=== PATIENT | female | born 1930 | race Asian ===

== ENCOUNTER 2016-11-07 18:32 | Inpatient (IN) | payer OTHER, MEDICAID ==
--- NOTE | 2016-11-07 18:50 | EDPHY ---
H & P Stated Complaint: fell forward out of walker inj l hip/ (also noting r facial droop)daughter Time Seen by Provider: 11/07/16 18:50 - Personal History Current Tetanus/Diphtheria Vaccine: Unsure - Medical/Surgical History Hx Asthma: No Hx Chronic Respiratory Disease: No Hx Diabetes: Yes Hx Cardiac Disease: Yes Hx Renal Disease: No Hx Cirrhosis: No Hx Alcoholism: No Hx HIV/AIDS: No Hx Splenectomy or Spleen Trauma: No Other PMH: Diabetes. left eye surgery - 2 weeks ago. hip surgery - February 2015. cardiac issues/dvt - Social History Smoking Status: Former smoker Constitutional: Initial Vital Signs Temperature (C) 36.7 C 11/07/16 18:44 Heart Rate 81 11/07/16 18:44 Respiratory Rate 18 11/07/16 18:44 Blood Pressure 188/67 H 11/07/16 18:44 O2 Sat (%) 90 L 11/07/16 18:44 O2 Delivery Mode Room Air Allergies/Adverse Reactions: bee stings Allergy (Uncoded 11/07/16 18:38) Home Medications: Medication Instructions Recorded Actos 11/07/16 Apresoline 11/07/16 Benicar 11/07/16 CALCI-CHEW 11/07/16 Cipro 11/07/16 Diclofenac 0.1% 11/07/16 Lasix 11/07/16 Lexapro 11/07/16 Lisinopril 11/07/16 Lopressor 100 mg (*) 11/07/16 Plendil 2.5 MG (*) 11/07/16 Restasis Opht Drops(*) 11/07/16 Trusopt 2% (*) 11/07/16 Ultram 11/07/16 Voltaren 11/07/16 traMADol 11/07/16 Medical Decision Making ED Course/Re-evaluation: CHIEF COMPLAINT: Femur fracture HISTORY OF PRESENT ILLNESS: The patient is an 85 y/o female arriving with her family from urgent care with a fractured left femur confirmed on x-ray. She complains of pain in her left lateral thigh and left groin after a mechanical fall tonight. She has a previously repaired fracture to her right femur and developed subsequent DVTs after that surgery. She is not currently on anticoagulants. She denies other injuries from the fall, head strike, or loss of consciousness. No weakness or paresthesias. Last PO intake lunch at noon. REVIEW OF SYSTEMS: A 10 point review of systems was performed and is negative with the exception of the elements mentioned in the history of present illness. PHYSICAL EXAM: HR, BP, O2 Sat, RR. Temp noted General Appearance: Alert, well hydrated, appropriate, and non-toxic appearing. Head: Atraumatic without scalp tenderness or obvious injury Eyes: Pupils equal, round, reactive to light and accommodation, EOMI, no trauma , no injection. Ears: Clear bilaterally, no perforation, normal landmarks Nose: Atraumatic, no rhinorrhea, clear. Throat: There is no erythema or exudates, no lesions, normal tonsils, mucus membranes moist. Neck: Supple, 2+ carotid upstroke, nontender, no lymphadenopathy. Respiratory: No retractions, no distress, no wheezes, and no accessory muscle use. Lungs are clear to auscultation bilaterally. Cardiovascular: Regular rate and rhythm, no murmurs, rubs, or gallops. Bilateral carotid, radial, dorsalis pedis, and posterior tibial pulses intact. Good capillary refill all extremities. Gastrointestinal: Abdomen is soft, nontender, non-distended, no masses, no rebound, no guarding, no peritoneal signs. Musculoskeletal: Tenderness to left upper thigh, pain with ROM. Other extremities have normal active ROM of all extremities, atraumatic. Neurological: Alert, appropriate, and interactive. The patient has normal DTRs and non-focal cranial nerves, motor, sensory, and cerebellar exam. Baseline right facial droop. Skin: No rashes, good turgor, no nodules on palpation. Past medical history: Femur fracture, UTIs Past surgical history: Right femoral neck fracture repair. Family history: Noncontributory Social history: Family at bedside DIAGNOSTICS/PROCEDURES/CRITICAL CARE TIME: Study: Urgent Care Pelvis x-ray Indication: Femur fracture Results: Pelvis x-ray was obtained. The results of the study are impacted left femoral neck fracture. I viewed the images myself on the PACS system. The 12 lead EKG was interpreted by myself. EKG shows sinus rhythm rate 85 with first degree AV block. See hard copy and/or "tracemaster" electronic copy for interpretation. Study: Chest x-ray Indication: preop Results: Chest x-ray was obtained. The results of the study are 1. Peribronchial thickening suggesting airway disease. 2. There may be an element of underlying interstitial lung disease. The study was read by the radiologist, Dr. Greco. I viewed the images myself on the PACS system. Study: CT of the Pelvis Indication: Femur fracture Results: CT scan of the pelvis was obtained. The results of the study are . The study was read by the radiologist, . I viewed the images myself on the PACS system. DIFFERENTIAL DIAGNOSIS: The differential diagnosis for the patient's trauma included but was not limited to intracranial injury, long bone and pelvic bone fractures, spinal injury, intra-abdominal injury, and intra-thoracic injury. MEDICAL DECISION MAKING: This is an 85 y/o female presenting with superior left thigh and groin tenderness and arriving with a confirmed left femoral neck fracture visible on x -ray at urgent care. She is not anticoagulated and denies other trauma from the fall. Plan for CT imaging of her pelvis and full preoperative work up. Will consult orthopedic surgeon. 1914: Dr. Holden accepts admission. 1916: Spoke with Dr. Nicole's PA, orthopedics. They will review imaging and assess patient. - Data Points Laboratory Results: Laboratory Results 11/07/16 19:10 11/07/16 19:10 WBC 13.33 H 10^3/uL (3.80-9.50) RBC 3.94 L 10^6/uL (4.18-5.33) Hgb 12.7 g/dL (12.6-16.3) Hct 38.1 % (38.0-47.0) MCV 96.7 fL (81.5-99.8) MCH 32.2 pg (27.9-34.1) MCHC 33.3 g/dL (32.4-36.7) RDW 13.3 % (11.5-15.2) Plt Count 226 10^3/uL (150-400) MPV 9.3 fL (8.7-11.7) Neut % (Auto) 83.6 H % (39.3-74.2) Lymph % (Auto) 10.2 L % (15.0-45.0) [place] % (Auto) 5.0 % (4.5-13.0) Eos % (Auto) 0.5 L % (0.6-7.6) Baso % (Auto) 0.2 L % (0.3-1.7) Nucleat RBC Rel Count 0.0 % (0.0-0.2) Absolute Neuts (auto) 11.16 H 10^3/uL (1.70-6.50) Absolute Lymphs (auto) 1.36 10^3/uL (1.00-3.00) Absolute Monos (auto) 0.66 10^3/uL (0.30-0.80) Absolute Eos (auto) 0.07 10^3/uL (0.03-0.40) Absolute Basos (auto) 0.02 10^3/uL (0.02-0.10) Absolute Nucleated RBC 0.00 10^3/uL (0-0.01) Immature Gran % 0.5 % (0.0-1.1) Immature Gran # 0.06 10^3/uL (0.00-0.10) PT 13.4 SEC (12.0-15.0) INR 1.03 (0.83-1.16) APTT 31.4 SEC (23.0-38.0) Sodium Pending Potassium Pending Chloride Pending Carbon Dioxide Pending Anion Gap Pending BUN Pending Creatinine Pending Estimated GFR Pending Glucose Pending Calcium Pending Departure - Departure Disposition: [facility] Inpatient Acute Clinical Impression: Fracture of femoral neck, left, closed Condition: Fair Report Scribed for: Phoenix Pascual Report Scribed by: Nikki Moya Date of Report: 11/07/16 Time of Report: 19:09
[2016-11-07] MEDS ORDERED: NS 1,000 ML IV ONE (19:11)
[2016-11-07 19:20] LABS: % IMMATURE GRANULYOCYTES 0.5 % (0.0-1.1); ABSOLUTE IMMATURE GRANULOCYTES 0.06 10^3/uL (0.00-0.10); ADD DIFF? NO; ADD MORPH? NO; ADD SCAN? NO; ATYPICAL LYMPHOCYTE FLAG 0 (0-99); FRAGMENT RBC FLAG 0 (0-99); HEMATOCRIT 38.1 % (38.0-47.0); HEMOGLOBIN 12.7 g/dL (12.6-16.3); LEFT SHIFT FLG 10 (0-99); LIPEMIA HEMOLYSIS FLAG 80 (0-99); MEAN CELL HEMOGLOBIN 32.2 pg (27.9-34.1); MEAN CELL HEMOGLOBIN CONCENTR. 33.3 g/dL (32.4-36.7); MEAN CELL VOLUME 96.7 fL (81.5-99.8); MEAN PLATELET VOLUME 9.3 fL (8.7-11.7); PLATELET CLUMPS FLAG 0 (0-99); PLATELET COUNT 226 10^3/uL (150-400); RED BLOOD CELL COUNT 3.94 10^6/uL (4.18-5.33); RED CELL DISTRIBUTION WIDTH 13.3 % (11.5-15.2)
[2016-11-07 19:30] LABS: INR 1.03 (0.83-1.16); PROTIME(PATIENT) 13.4 SEC (12.0-15.0)
[2016-11-07 19:31] LABS: APTT 31.4 SEC (23.0-38.0)
--- NOTE | 2016-11-07 19:31 | DX ---
AP upright portable chest Reason for examination: Shortness of breath in an 85-year-old female; no previous studies are availab le for comparison. FINDINGS: The heart size is normal allowing for portable technique. No pleural effusions are seen. Peribronchial thickening is noted and mild interstitial prominence is identified. Pleural surfaces an d bony thorax are negative for acute abnormality. IMPRESSION: 1. Peribronchial thickening suggesting airway disease. 2. There may be an element of underlying interstitial lung disease.
--- NOTE | 2016-11-07 19:34 | CPEKG ---
Heart Rate: 85 RR Interval: 706 P-R Interval: 276 QRSD Interval: 72 QT Interval: 392 QTC Interval: 467 P [place]: 61 QRS [place]: 46 T Wave [place]: 8 EKG Severity - ABNORMAL ECG - EKG Impression: SINUS RHYTHM EKG Impression: FIRST DEGREE AV BLOCK Electronically Signed By: Phoenix Pascual 07-Nov-2016 22:51:43
[2016-11-07 19:38] LABS: ANION GAP 11 mEq/L (8-16); CALCIUM 9.3 mg/dL (8.5-10.4); CARBON DIOXIDE 26 mEq/l (22-31); CHLORIDE 100 mEq/L (97-110); CREATININE 1.7 mg/dL (0.6-1.0); GLOMERULAR FILTRATION RATE 28; GLUCOSE 199 mg/dL (70-100); POTASSIUM 4.3 mEq/L (3.5-5.2); SODIUM 137 mEq/L (134-144)
[2016-11-07] MEDS ORDERED: fentaNYL 100 MCG/2 ML INJ IVP ONE (20:17)
[2016-11-07 20:52] LABS: COLOR YELLOW; LEUKOCYTE ESTERASE,URINE 3+ (NEGATIVE); NITRITE,URINE NEGATIVE (NEGATIVE)
[2016-11-07 21:04] LABS: BACTERIA 1+ /hpf (NONE SEEN)
--- NOTE | 2016-11-07 21:49 | CT ---
Noncontrast CT Extremity; Left Hip Reason for examination: Pain following trauma. Evaluate fracture. Technique: A noncontrast spiral acquisition was performed through the left, with axial images obtain ed at 1.25-mm thickness. Sagittal and coronal reformations are performed. Additionally, for more op timal characterization of osseous structures, a three-dimensional reformation was performed on the w orkstation. The study is reviewed on the workstation at multiple window/level settings. Dose reduct ion techniques were utilized. Comparison: Comparison to the outside left hip radiographic study from earlier today. Findings: There is a minimally-displaced femoral neck fracture, with impaction. There is no signifi cant angulation. Degenerative changes are noted involving the articulation of the femoral head with the acetabulum. No other fracture is identified. A minimal joint effusion is suspected. Vascular c alcifications are noted. Multiple uterine calcifications are seen consistent with calcified fibroids . Impressions 1. There is a minimally-displaced, impacted, left femoral neck fracture. 2. See above report for additional findings. A preliminary report was called to Dr. Phoenix Pascual at 2140 hours in the Emergency Department.
[2016-11-07] MEDS ORDERED: ONDANSETRON 4 MG/2 ML VIAL IVP PRN (21:56)
[2016-11-07] MEDS ORDERED: ZOLPIDEM TARTRATE 5 MG TAB PO PRN (21:56)
[2016-11-07] MEDS ORDERED: NS 1,000 ML IV SCH (22:00)
[2016-11-07] MEDS ORDERED: POLYVINYL ALCOHOL EACHEYE PRN (22:00)
[2016-11-07] MEDS ORDERED: POVIDONE EACHEYE PRN (22:00)
--- NOTE | 2016-11-07 22:22 | PDGENHP ---
History and Physical History and Physical: HISTORY AND PHYSICAL ADMISSION NOTE CC: Left hip pain after fall HISTORY: this woman with osteoporosis was sitting in her seated walker today when she leaned over to trying to tie his shoe and fell out of the walker which did not have lock wheels. She landed on left side has been able stand with left hip pain since then. She was seen elsewhere were a chest x-ray apparently shows a left femoral neck fracture although I do not have the report and I am unable to see the images so I am going on the report to me from Dr. Pascual in the ER. The patient denies any lightheadedness stroke-like symptoms syncopal type symptoms chest pain palpitations nausea fever or other acute illness other than a mechanical fall and post fall pain. She does have a previous history of falls and broke her right hip 1-1/2 years ago. She was treated with surgical pinning of the hip at [facility] at that time and have what sounds like a fairly uneventful recovery. She does have ongoing gait instability and has been living with her daughter who is her poker room manager. The daughter is here at the bedside with me now on helps with this history. The patient does not feel like she has any other injuries and does not have pain in any other parts of her body. ROS: There is chronic exertional dyspnea which is stable and some mild chronic ankle swelling which is stable. Also the patient has had off color urine for several weeks and has finished 2 recent courses of antibiotic for which describes urinary tract infection diagnosed in [place]. However at this time the daughter feels that the patient's urine is still off color and she is still concerned that there is infection. The patient is not aware of any fever symptoms or urinary symptoms. Otherwise a 10 system comprehensive review systems is unrevealing PAST MEDICAL HISTORY: -Chronic congestive heart failure diagnosed elsewhere; the patient has never been hospitalized, has no history of arrhythmia, palpitations, chest pain, or coronary disease. She sees Dr. Niurka Greenwood in [place] -chronic respiratory failure -diabetes mellitus type 2 -hypertension -DVT in her right leg after her right hip fracture 1 and half years ago -Glaucoma -Chronic kidney disease FAMILY MEDICAL HISTORY: Heart disease SOCIAL HISTORY: lives with her daughter: Ongoing gait instability is the major concern there MEDICATIONS: the medicine list has been reconciled by our pharmacist and I have reviewed the list and ordered appropriate medicines PHYSICAL EXAMINATION: Vital Signs: Some hypertension, otherwise stable without fever Examination: General: alert, oriented, fairly poor memory but otherwise good mentation, relaxed Skin: warm, dry, good color, no rash HEENT: normal without evidence of injury Neck: no mass or jvd or evidence of injury Resps: relaxed Lungs: Diminished but clear breath sounds Heart: regular, no murmur Abdomen: soft, nondistended, nontender, +BS, no mass Upper Extremities: normal Lower Extremities: Mild bilateral ankle edema, warm; the pulses are diminished at both feet symmetrically. She has intact neuro function at the left foot; there is ended here in dried crusting over skin at the left lateral malleolus where she has a chronic diabetic sore. 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, no focal weakness IV site: looks normal LABORATORY DATA: Creatinine 1.7 BUN 45 I do not currently have previous renal function data 10 white blood cells in the urinalysis with 5 red blood cells White blood cell count mildly elevated hemoglobin stable RADIOLOGY STUDIES: CT scan of the left hip shows a fracture with minimal if any displacement; I am unable to find the hip x-rays which were done at an outside facility today Chest x-ray in the ER today, my personal review of the images: Diffuse mild fibrous interstitial markings suggesting chronic interstitial lung disease ASSESSMENT: DIAGNOSES: # ACUTE LEFT HIP FRACTURE AFTER MECHANICAL FALL, THIS WILL NEED SURGICAL REPAIR # HISTORY OF DVT AND HIGH DVT RISK HERE # PYURIA OF UNCERTAIN SIGNIFICANCE. PATIENT HAS RECEIVED 2 RECENT COURSES OF ANTIBIOTIC FULL REPORTEDLY URINE INFECTION BUT SHE DOES NOT REALLY NOTICE SYMPTOMS AND I DO NOT HAVE CULTURE INFORMATION # CREATININE OF 1.7 BUN 45 WITH HISTORY OF RENAL INSUFFICIENCY, BUT AT THE MOMENT I DO NOT HAVE COMPARISON BLOOD TEST RESULTS # HISTORY OF CHRONIC HEART DISEASE, NEVER SEVERE ENOUGH TO REQUIRE ANY HOSPITALIZATION. SHE HAS NO KNOWN CORONARY OR ARRHYTHMIA HISTORY ADD THE AND APPEARS TO BE AT HER BASELINE FUNCTIONALLYAND FAR SWELLING AND BREATHING # SUSPECT CHRONIC INTERSTITIAL LUNG DISEASE BASED ON HER CHEST X-RAY WHICH MAY ACCOUNT FOR A LOT OF HER EXERTIONAL DYSPNEA PLANS: -I reviewed her case in detail with Dr. 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 It may be that this is not infection and maybe some other form of cystitis but has were looking to do a surgery with hardware it seems prudent to give some coverage at least for the time of surgery until we can get more detailed information. The patient does not recall symptoms of UTI but she does not have a great memory. -delirium prevention measures -in terms of surgical risk to the patient does have a somewhat increased risk of cardiac and pulmonary complications of surgery, however she is at her baseline from both a pulmonary and cardiac standpoint and other than some mild edema at the ankle seems well compensated. At this point there is no indication for further evaluations or interventions and I would recommend that we proceed with surgery in the morning. I reviewed this with Dr. Nicole I have reviewed the patient's case in detail with Jacklyn Pascual and Corey
[2016-11-07] MEDS ORDERED: HEPARIN 5,000 UNIT/0.5 ML SYR SC ONE (22:30)
[2016-11-07] MEDS: ESCITALOPRAM OXALATE 10 MG TAB PO SCH (23:11)
[2016-11-07] MEDS: METOPROLOL TARTRATE 25 MG TAB PO SCH (23:11)
[2016-11-08] MEDS: ACETAMINOPHEN 325 MG TAB PO PRN (00:37)
[2016-11-08 04:59] LABS: % IMMATURE GRANULYOCYTES 0.4 % (0.0-1.1); ABSOLUTE IMMATURE GRANULOCYTES 0.04 10^3/uL (0.00-0.10); ADD DIFF? NO; ADD MORPH? NO; ADD SCAN? NO; ATYPICAL LYMPHOCYTE FLAG 10 (0-99); FRAGMENT RBC FLAG 0 (0-99); HEMATOCRIT 33.5 % (38.0-47.0); HEMOGLOBIN 10.8 g/dL (12.6-16.3); LEFT SHIFT FLG 10 (0-99); LIPEMIA HEMOLYSIS FLAG 80 (0-99); MEAN CELL HEMOGLOBIN 31.6 pg (27.9-34.1); MEAN CELL HEMOGLOBIN CONCENTR. 32.2 g/dL (32.4-36.7); MEAN PLATELET VOLUME 9.4 fL (8.7-11.7); PLATELET CLUMPS FLAG 0 (0-99); PLATELET COUNT 179 10^3/uL (150-400); RED BLOOD CELL COUNT 3.42 10^6/uL (4.18-5.33); RED CELL DISTRIBUTION WIDTH 13.4 % (11.5-15.2)
[2016-11-08 05:27] LABS: ANION GAP 10 mEq/L (8-16); CALCIUM 8.4 mg/dL (8.5-10.4); CARBON DIOXIDE 22 mEq/l (22-31); CHLORIDE 109 mEq/L (97-110); CREATININE 1.3 mg/dL (0.6-1.0); GLOMERULAR FILTRATION RATE 39; GLUCOSE 133 mg/dL (70-100); POTASSIUM 4.3 mEq/L (3.5-5.2); SODIUM 141 mEq/L (134-144)
[2016-11-08] MEDS: PIOGLITAZONE HCL 15 MG TAB PO SCH (07:00)
[2016-11-08] MEDS ORDERED: METOPROLOL TARTRATE 25 MG TAB PO SCH (07:00)
[2016-11-08] MEDS: hydrALAZINE 25 MG TAB PO SCH ×2 (08:19→14:19)
[2016-11-08] MEDS: FUROSEMIDE 20 MG TAB PO SCH (08:20)
[2016-11-08] MEDS: OLMESARTAN MEDOXOMIL 20 MG TAB PO SCH (08:20)
[2016-11-08] MEDS: METOPROLOL TARTRATE 25 MG TAB PO SCH ×2 (08:20→17:59)
[2016-11-08] MEDS: LISINOPRIL 40 MG TAB PO SCH (08:21)
[2016-11-08] MEDS: FELODIPINE 5 MG TAB.ER PO SCH (08:22)
[2016-11-08] MEDS ORDERED: ENOXAPARIN 30 MG/0.3 ML SYR SC SCH (09:00)
[2016-11-08] MEDS ORDERED: CYCLOSPORINE 0.05% 1 EACH BOX EACHEYE SCH (09:00)
[2016-11-08] MEDS ORDERED: DORZOLAMIDE 2% OPTH DROPS OP SCH (09:00)
[2016-11-08] MEDS ORDERED: BUPIVACAINE/EPI 0.25% 30 ML SDV ONE (10:16)
[2016-11-08] MEDS ORDERED: fentaNYL 100 MCG/2 ML INJ ONE (10:35)
[2016-11-08] MEDS ORDERED: PROPOFOL/EMULSION 500 MG/50 ML BOTTLE IV ONE (10:35)
[2016-11-08] MEDS ORDERED: LIDOCAINE 2% JELLY 5 ML TUBE ONE (10:36)
[2016-11-08] MEDS ORDERED: ceFAZolin 2 GM/DEXTROSE 100 ML IV ONE (10:37)
[2016-11-08] MEDS ORDERED: DEXAMETHASONE 4 MG/ML VIAL ONE (10:50)
[2016-11-08] MEDS ORDERED: ONDANSETRON 4 MG/2 ML VIAL ONE (10:51)
[2016-11-08] MEDS ORDERED: PHENYLEPHRINE HCL 100 MCG/ML SYR ONE (10:52)
[2016-11-08] MEDS ORDERED: ceFAZolin 1 GM VIAL ONE ×2 (10:57)
--- NOTE | 2016-11-08 11:42 | HOSPPROG ---
Hospitalist Progress Note Assessment/Plan: 85-y/o F PMH T2DM, chronic respiratory failure, T2DM, htn, DCHF, CKD, admitted after a mechanical fall yesterday. Fell out of seated walker and landed on L hip with resultant femoral neck fx. #. L femoral neck fx: s/p L ORIF POD 0 Reports hip pain currently Will add prn narcotics #. CKD: appears to be at b/l #. DCHF: appears euvolemic #. chronic hypoxic respiratory failure: typically not on O2 #. pyuria: started on CTX; will await cx results recently treated with 2 courses of abx for UTI #. T2DM: home Pioglitazone continued #. DVT ppx: started on Heparin Subjective: Reports hip pain. No breathing difficulties. Objective: Vital Signs Temp Pulse Resp BP Pulse Ox 98.2 F 75 14 153/55 H 96 11/08/16 07:49 11/08/16 08:20 11/08/16 07:49 11/08/16 08:22 11/08/16 07:49 Laboratory Results 11/08/16 04:50 11/08/16 04:50 11/07/16 11/08/16 11/09/16 05:59 05:59 05:59 Intake Total 1575 Output Total 200 150 Balance 1375 -150 PT 13.4 SEC (12.0-15.0) 11/07/16 19:10 INR 1.03 (0.83-1.16) 11/07/16 19:10 - Physical Exam Constitutional: no apparent distress, appears nourished Eyes: PERRL, anicteric sclera Ears, Nose, Mouth, Throat: moist mucous membranes, hearing normal Cardiovascular: regular rate and rhythym, no murmur, rub, or gallop Respiratory: no respiratory distress Gastrointestinal: soft, non-tender abdomen Skin: warm, normal color Psychiatric: interacting appropriately ICD10 Worksheet Patient Problems: Problems Problem Status Diagnosed Fracture of femoral neck, left, closed Acute
--- NOTE | 2016-11-08 12:02 | DX ---
Intraoperative fluoroscopy History: Left hip fixation. Comparison: CT hip November 07, 2016. Findings: 4 spot films show placement of 3 cannulated screws through a femoral neck fracture, with ne ar-anatomic positioning. Fluoro time: 47.6 seconds. Dose: 9.0 mGy. Impression: Intraoperative fluoroscopy as above.
[2016-11-08] MEDS ORDERED: BISACODYL 10 MG SUPP PR PRN (12:19)
[2016-11-08] MEDS ORDERED: BISACODYL 5 MG EC TAB PO PRN (12:19)
--- NOTE | 2016-11-08 12:21 | POSTOPPROG ---
Post Op Note Date of Operation: 11/08/16 Surgeon: Cory Nicole Puff Ironer: None Anesthesiologist: Vineet Anesthesia: GET(General Endotracheal) Pre-op Diagnosis: L fem neck fx Post-op Diagnosis: same Procedure: CRIF L hip Inf/Abcess present in the surg proc area at time of surgery?: No EBL: 50-100 Complications: None
--- NOTE | 2016-11-08 12:34 | GCON ---
[f rep st] CONSULTATION ORTHOPEDIC CONSULTATION DATE OF CONSULTATION: 11/08/2016 CHIEF COMPLAINT: Left hip fracture. HISTORY OF PRESENT ILLNESS: An 85-year-old female with osteoporosis, who fell via mechanical fall when she attempted to tie her shoe. Injury occurred yesterday, 11/07/2016. She was brought into the emergency department, evaluated by Dr. Pascual, and found to have the above listed hip fracture. As a result, I was consulted as the on-call orthopedic surgeon. At this point, she notes left hip pain. She has been unable to bear weight. Before this injury, she would walk with a cane and front-wheeled walker, living at home with her daughter. She did suffer a similar right femoral neck fracture treated with CRIF approximately 1-1/2 years ago at [facility]. She has had relatively good recovery from this injury. She denies any other complaints or concerns at this time. PAST MEDICAL HISTORY: CHF, chronic respiratory failure. DM 2. Hypertension. Right lower extremity DVT 1.5 years ago, the same time as her right hip surgery. Glaucoma. CKD. PAST SURGICAL HISTORY: Right hip closed reduction internal fixation at [facility] by Dr. Braxton approximately 1.5 years ago. Four eye surgeries in 2016 for glaucoma and lens problems. ALLERGIES: No known drug allergies. She does have a significant allergy to bee stings. MEDICATIONS: Please see intake form for additional information; however, currently active medications at home are povidone-based eye drops, Travoprost, herbal supplements, acetaminophen, metoprolol, lisinopril, Lasix, felodipine, citalopram, dorzolamide, cyclosporine, hydralazine, olmesartan, and pioglitazone. Some of these medications have been changed as an inpatient and/ or others added and/or subtracted. Please see current active medications as an inpatient for additional information. SOCIAL HISTORY: She is and lives with her daughter in [place]. She does have some difficulty with gait and/or ambulation using a front-wheeled walker and/or cane. No alcohol, tobacco or drug intake. FAMILY HISTORY: Father with heart disease. Mother with stroke. Otherwise, much of the family history is unknown as the family immigrated from [facility]. REVIEW OF SYSTEMS: A 10-point review was performed and only notable for chronic exertional dyspnea, as well as mild bilateral ankle swelling. She has had recent UTIs with 2 recent courses of antibiotics. However, the daughter feels that the UTI may still be present and/or affecting the patient. She has currently received ceftriaxone. PHYSICAL EXAMINATION: VITAL SIGNS: Most recent blood pressure 156/59, heart rate 73, respiratory rate 14, saturating 96% on 2 L. Temperature 36.8 and afebrile. GENERAL: NAD. Cooperative and pleasant. HEENT: NC/AT. EOMI. PERRLA. Ears and nares patent without discharge. Oropharynx clear. NECK: NTTP. FROM. Supple. Negative Lhermitte's and Spurling's. No LAD. MUSCULOSKELETAL: Left hip is compared to the right. The right hip has a well- healed lateral incision. Left hip without any ecchymosis or erythema or edema. There is TTP. Log roll positive. Distally, both lower extremities without any calf tenderness. Negative Homans'. No significant swelling. DNVI VLE both thighs soft, both compartments soft. Skin intact. SKIN: Please see dictation above. There is no ecchymosis or erythema, calor or edema. No other rashes or lesions noted. No tattoos. NEUROLOGIC: Nonfocal. No deficits noted. C5 to T1 and L1 through S1 intact. DTRs are grade 1+ bilateral upper extremities with symmetry. Deferred in the lower extremities. PSYCH: Alert and oriented x3. Appropriate mood and affect. SECONDARY SURVEY: Both upper extremities, shoulders, pelvis and right lower extremity are examined and there are no other obvious objective signs of significant trauma. RADIOGRAPHS: Plain films and CT are reviewed, consistent with left garden 1 impacted femoral neck fracture. IMPRESSION: Closed left garden 1 valgus impacted femoral neck fracture. PLAN: The patient's diagnoses and treatment options have been outlined for her and her daughter, who is her medical power of litigation attorney associate. After understanding the risks, benefits and alternatives to surgery, she has provided a signed a witnessed informed consent, which is placed in her chart. We will proceed with CRIF versus ORIF, possible hemiarthroplasty of the left hip. The patient has been n.p.o. overnight. She is appropriately prepped for surgery and cleared by the medicine service. We will manage her perioperatively with careful assessment of possible VTE given her significant history. She did receive 1 dose of subcutaneous heparin overnight last night and will resume chemical proximal postoperatively. She will have TEDs and SCDs on the right lower extremity for surgery, as well as postoperatively. All of the family's questions have been answered today. They are very happy of the care received. I appreciate the opportunity to assist in the care of this patient. Please call with any questions. /[id number]/MODL MTDD
[2016-11-08] MEDS: CYCLOSPORINE 0.05% 1 EACH BOX EACHEYE SCH ×2 (13:05→21:30)
[2016-11-08] MEDS: POVIDONE EACHEYE PRN ×2 (13:06→21:31)
[2016-11-08] MEDS: POLYVINYL ALCOHOL EACHEYE PRN ×2 (13:06→21:31)
[2016-11-08] MEDS: VIT D PO SCH (13:12)
[2016-11-08] MEDS: PROBIOTIC PO SCH (13:12)
[2016-11-08] MEDS: CALCIUM PO SCH (13:12)
[2016-11-08] MEDS ORDERED: oxyCODONE IR 5 MG TAB PO PRN (13:32)
--- NOTE | 2016-11-08 14:07 | DX ---
Left hip 2 views at 1224 hours History: Postoperative left hip fixation. Comparison: Intraoperative fluoroscopy same day, CT pelvis November 07, 2016, outside left hip plain f ilm November 07, 2016. Findings: 3 cannulated screws traverse a mid left femoral neck fracture with 4 mm medial displacement . Old right femoral neck fracture and cannulated screw fixation are again noted. Osteopenia is presen t. 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 Atherosclerosis is noted. Calcified fibroids are present. Impression: Cannulated screw fixation of a minimally displaced left femoral neck fracture.
[2016-11-08] MEDS: DOCUSATE SODIUM 100 MG CAP PO SCH ×2 (14:19→21:30)
--- NOTE | 2016-11-08 15:04 | GOP ---
[f rep st] OPERATIVE REPORT DATE OF OPERATION: 11/08/2016 SURGEON: Cory Nicole MD SALES REPRESENTATIVE PUBLICATIONS: None. ANESTHESIA: General. ANESTHESIOLOGIST: Jermaine Manley MD PREOPERATIVE DIAGNOSIS: Left femoral neck fracture, closed. POSTOPERATIVE DIAGNOSIS: Left femoral neck fracture, closed. PROCEDURE PERFORMED: Closed reduction, internal fixation of left femoral neck fracture. FINDINGS: Garden I valgus-impacted left femoral neck fracture with minimal displacement. Bone quality consistent with osteopenia. ESTIMATED BLOOD LOSS: 30 cc. INDICATIONS: This is an 85-year-old female who fell yesterday mechanically, injuring her left hip when she was attempting to tie her shoe. She was unable to bear weight, brought into the Emergency Department, and was found to have the above listed diagnosis. After being cleared by the Medical Service, the patient was evaluated and the family was counseled regarding care. The risks, benefits and alternatives were described regarding the procedure and the daughter, who has medical power of senior trial attorney, provided to sign a witnessed informed consent which was placed in the patient's chart. All of their questions were answered prior to surgery. DESCRIPTION OF PROCEDURE: The patient was identified in the preoperative holding area and her left hip was signed and designated as the operative site. Right lower extremity was confirmed and SCDs and VERNELL hose were ordered. She was treated with 2 g IV prophylaxis cefazolin per protocol. The patient did receive an additional dose of ceftriaxone for her urinary tract infection. The patient was intubated on her gurney. She was then carefully positioned on the fracture table with a well-padded perineal post. Right lower extremity was placed in a diana-lithotomy position. Left lower extremity was placed in the fracture table boot with standard internal rotation and adduction. Both arms were well-padded and protected. The left hip was then prepped and draped in the usual sterile manner. A large C-arm device was utilized for imaging during the surgery. The skin line incision was anesthetized with 10 cc of 0.25% Marcaine with epinephrine. A 4 cm skin incision was placed directly over the lateral aspect of the greater trochanter and intertrochanteric region of the hip. A full- thickness dermal incision was carried down through the fat with a Bovie cautery device. All small crossing bleeders were coagulated. The IT band was split in parallel with its fibers and retractors were placed. The lateral aspect of the femoral was palpated and then an initial center-inferior guidewire was placed in the appropriate position, orientation and depth. Next, using the Ana gun , 2 additional guidewires were placed superior and anterior and superior and posterior. Appropriate placement was confirmed with multiple images from the large C-arm device. A cannulated drill was then used to drill the lateral cortex of the femur. Measurements were taken. Three 7.3 mm cannulated screws were then placed across the fracture site with care taken to avoid any engagement of the fracture site itself with threads. The inferior and superior- posterior screws were placed with washer. The superior-anterior screw was placed without a washer. Excellent fixation was achieved throughout. The wound was then copiously irrigated with sterile saline after finalized imaging. The IT band was closed with multiple interrupted #1 Ethibond sutures. 0 Vicryl sutures were used to reapproximate the fat space and decrease potential space. 2-0 Vicryl sutures were used to close the deep dermal layer. Skin j carlos were used at the level of the skin. A sterile postsurgical dressings were applied. The Anesthesia Service took over to wake the patient up after she was removed from all positioning devices. TOURNIQUET TIME: Zero. DRAINS: None. IMPLANTS: Synthes 7.3 mm screws x3 with the anterosuperior screw without a washer, the posterior-superior and central-inferior screws placed with washers. COMPLICATIONS: None. DISPOSITION: The patient was extubated and transferred to the PACU in stable condition. /[id number]/MODL MTDD
[2016-11-08] MEDS: ESCITALOPRAM OXALATE 10 MG TAB PO SCH (17:58)
[2016-11-08] MEDS ORDERED: ESCITALOPRAM OXALATE 10 MG TAB PO SCH (18:00)
[2016-11-08] MEDS: DORZOLAMIDE 2% OPTH DROPS OP SCH ×2 (18:03→21:31)
[2016-11-08] MEDS ORDERED: TRAVOPROST Z 0.004% 2.5 ML OPHT.BTL EACHEYE SCH (21:00)
[2016-11-08] MEDS ORDERED: HEPARIN 20,000 UNIT/ML VIAL SC SCH (21:00)
[2016-11-08] MEDS: HEPARIN 5,000 UNIT/0.5 ML SYR SC SCH (21:30)
[2016-11-08] MEDS: HYDROCODONE/APAP 5/325 TAB PO PRN (21:30)
[2016-11-08] MEDS: TRAVOPROST Z 0.004% 2.5 ML OPHT.BTL EACHEYE SCH (21:30)
[2016-11-09] MEDS: HYDROCODONE/APAP 5/325 TAB PO PRN ×2 (05:27→11:24)
[2016-11-09] MEDS: DOCUSATE SODIUM 100 MG CAP PO SCH ×2 (08:12→19:55)
[2016-11-09] MEDS: PIOGLITAZONE HCL 15 MG TAB PO SCH (08:12)
[2016-11-09] MEDS: OLMESARTAN MEDOXOMIL 20 MG TAB PO SCH (08:12)
[2016-11-09] MEDS: FELODIPINE 5 MG TAB.ER PO SCH (08:12)
[2016-11-09] MEDS: METOPROLOL TARTRATE 25 MG TAB PO SCH ×2 (08:13→19:55)
[2016-11-09] MEDS: hydrALAZINE 25 MG TAB PO SCH ×2 (08:13→15:03)
[2016-11-09] MEDS: LISINOPRIL 40 MG TAB PO SCH (08:13)
[2016-11-09] MEDS: FUROSEMIDE 20 MG TAB PO SCH (08:13)
[2016-11-09] MEDS: HEPARIN 5,000 UNIT/0.5 ML SYR SC SCH ×2 (08:15→19:56)
[2016-11-09] MEDS: DORZOLAMIDE 2% OPTH DROPS OP SCH ×3 (08:16→19:56)
[2016-11-09] MEDS: CYCLOSPORINE 0.05% 1 EACH BOX EACHEYE SCH ×2 (08:16→19:56)
[2016-11-09 09:22] LABS: % IMMATURE GRANULYOCYTES 0.4 % (0.0-1.1); ABSOLUTE IMMATURE GRANULOCYTES 0.03 10^3/uL (0.00-0.10); ADD DIFF? NO; ADD MORPH? NO; ADD SCAN? NO; ATYPICAL LYMPHOCYTE FLAG 20 (0-99); FRAGMENT RBC FLAG 0 (0-99); HEMATOCRIT 29.6 % (38.0-47.0); HEMOGLOBIN 9.7 g/dL (12.6-16.3); LEFT SHIFT FLG 0 (0-99); LIPEMIA HEMOLYSIS FLAG 80 (0-99); MEAN CELL HEMOGLOBIN 32.7 pg (27.9-34.1); MEAN CELL HEMOGLOBIN CONCENTR. 32.8 g/dL (32.4-36.7); MEAN CELL VOLUME 99.7 fL (81.5-99.8); MEAN PLATELET VOLUME 9.7 fL (8.7-11.7); PLATELET CLUMPS FLAG 0 (0-99); PLATELET COUNT 164 10^3/uL (150-400); RED BLOOD CELL COUNT 2.97 10^6/uL (4.18-5.33); RED CELL DISTRIBUTION WIDTH 13.7 % (11.5-15.2)
[2016-11-09 09:54] LABS: ANION GAP 10 mEq/L (8-16); CALCIUM 8.4 mg/dL (8.5-10.4); CARBON DIOXIDE 24 mEq/l (22-31); CHLORIDE 107 mEq/L (97-110); CREATININE 1.7 mg/dL (0.6-1.0); GLOMERULAR FILTRATION RATE 28; GLUCOSE 144 mg/dL (70-100); POTASSIUM 4.3 mEq/L (3.5-5.2); SODIUM 141 mEq/L (134-144)
--- NOTE | 2016-11-09 10:43 | SOAPPROG ---
SOAP Progress Note Assessment/Plan: Assessment: POD 1 s/p CRIF L fem neck fracture, stable and doing well. +UTI as above. Plan: TDWB LLE, PT/OT, mob OOB, assess safety and ADL assessment. Receiving ceftriaxone for UTI which will also cover surgical proph needs. Continue VTE proph with chemo/mech approach. Dsg change tomorrow. Appreciate med team management. Abx for resistant E.coli UTI per primary hospitalist team, continue ceftriaxone for now. Dispo pending today's evals. Subjective: No SHEEBA. No c/o's other than L hip mod pain with movement/pressure. Daughter at bedside, very happy with her Mom's status. Objective: Vital Signs Temp Pulse Resp BP Pulse Ox 36.8 C 75 16 122/47 H 95 11/09/16 07:56 11/09/16 08:13 11/09/16 07:56 11/09/16 08:13 11/09/16 07:56 Microbiology 11/07/16 20:58 Urine Culture - Final Urine,Clean Catch Escherichia Coli Laboratory Results 11/09/16 09:14 11/09/16 09:14 11/08/16 11/09/16 11/10/16 05:59 05:59 05:59 Intake Total 1575 1375 Output Total 200 1325 Balance 1375 50 PT 13.4 SEC (12.0-15.0) 11/07/16 19:10 INR 1.03 (0.83-1.16) 11/07/16 19:10 VSS. L hip/thigh soft, dsgs c/d/i. No sig edema/ecchy/erythema/calor. DNVI BLE's w/o Jairo's or sig edema, no calf/pop TTP. Micro: E.coli UTI with resistance to standard PO abx (e.g. TMP/SMX), susceptible to current ctrx. ICD10 Worksheet Patient Problems: Problems Problem Status Diagnosed Fracture of femoral neck, left, closed Acute
[2016-11-09] MEDS: PROBIOTIC PO SCH (11:22)
[2016-11-09 11:33] LABS: COLOR YELLOW; LEUKOCYTE ESTERASE,URINE 3+ (NEGATIVE); NITRITE,URINE NEGATIVE (NEGATIVE)
[2016-11-09 11:44] LABS: MUCUS TRACE /lpf (NONE-1+); WBC,URINE 50-182 /hpf (0-3)
[2016-11-09] MEDS: VIT D PO SCH (11:50)
[2016-11-09] MEDS: CALCIUM PO SCH (11:50)
--- NOTE | 2016-11-09 14:54 | HOSPPROG ---
Hospitalist Progress Note Assessment/Plan: 85-y/o F PMH T2DM, chronic respiratory failure, T2DM, htn, DCHF, CKD, admitted after a mechanical 11/07/16. Fell out of seated walker and landed on L hip with resultant femoral neck fx. #. L femoral neck fx: s/p L ORIF POD 1 Reports no hip pain currently #. CKD: appears to be at b/l reviewed with daughter that patient is on both ARB and ACEi, which may be contributing to her renal dysfunction #. htn: BP goals reviewed/ for her age would allow higher pressures stop Benicar and Lisinopril and monitor #. DCHF: appears euvolemic #. chronic hypoxic respiratory failure: typically not on O2 #. E coli UTI: recently had 2 rounds of abx for this currently on CTX to which UTI is sensitive #. T2DM: home Pioglitazone continued #. DVT ppx: started on Heparin Subjective: Pt resting. Denies any pain. Objective: Vital Signs Temp Pulse Resp BP Pulse Ox 98.1 F 62 17 113/41 L 97 11/09/16 11:38 11/09/16 11:38 11/09/16 11:38 11/09/16 11:38 11/09/16 11:38 Microbiology 11/07/16 20:58 Urine Culture - Final Urine,Clean Catch Escherichia Coli Laboratory Results 11/09/16 09:14 11/09/16 09:14 11/08/16 11/09/16 11/10/16 05:59 05:59 05:59 Intake Total 1575 1375 Output Total 200 1325 Balance 1375 50 PT 13.4 SEC (12.0-15.0) 11/07/16 19:10 INR 1.03 (0.83-1.16) 11/07/16 19:10 - Physical Exam Constitutional: no apparent distress, appears nourished Eyes: PERRL, anicteric sclera Ears, Nose, Mouth, Throat: moist mucous membranes, hearing normal Cardiovascular: regular rate and rhythym, no murmur, rub, or gallop Respiratory: no respiratory distress Skin: warm, normal color ICD10 Worksheet Patient Problems: Problems Problem Status Diagnosed Fracture of femoral neck, left, closed Acute
[2016-11-09] MEDS: ACETAMINOPHEN 325 MG TAB PO PRN ×2 (15:03→20:09)
[2016-11-09] MEDS: ESCITALOPRAM OXALATE 10 MG TAB PO SCH (17:16)
[2016-11-09] MEDS: POLYVINYL ALCOHOL EACHEYE PRN ×2 (17:19→19:57)
[2016-11-09] MEDS: POVIDONE EACHEYE PRN ×2 (17:19→19:57)
--- NOTE | 2016-11-09 19:39 | WOCRNPDOC ---
JACKIE Advanced Assessment Note - Skin Integrity Problem, Advanced Assess Left Ankle Dressing Type: Open to Air (under VERNELL) Exudate Amount: None Exudate Characteristic(s): None Integumentary Issue Intervention: Dressing Applied (dry bandaid) Irene Wound Tissue: Intact Irene Wound Swelling: None Wound Edges: Well Defined Site Odor: None Site Measurement - Head-to-Toe Length X Width X Depth (cm): 0.5 wiley x 0 ( protruding skin tag) Skin Integrity Problem Comment: Daughter describes that skin tag has previously "torn off" of ankle, exposing "a hole with raw flesh." Patient is presently wearing TEDs: Protected site with bandaid to provide flat profile and minimize risk of additional injury. Left Hip Surgical Wound/Incision Dressing Description: Clean/Dry, Intact Bilateral Sacrum Pressure Injury Dressing Type: Open to Air Exudate Amount: None Exudate Characteristic(s): None Irene Wound Tissue: Ecchymotic, Intact, Thin Irene Wound Swelling: None Wound Bed Color: Blue, Purple, Red Site Odor: None Site Measurement - Head-to-Toe Length X Width X Depth (cm): Two diffuse sites, approx 5 x 2 x 0 bilaterally Pressure Injury Stage: Deep Tissue Injury (DTI) Pressure Injury Present on Admit: Yes (Daughter reports has been monitoring at home.) Skin Integrity Problem Comment: Site is in sacral/buttock area, possibly difficult to maintain intact, dry dressing. Calazime is in use; Daughter reports that patient has been sitting/lying on back "most of the time" at home. Provided verbal and demo teaching about pressure redistribution/off-loading using scheduled and PRN repositioning. Also provided with Allevyn dressing and "waffle" air cushion for chair. AMANDA Montana present, assisting.
[2016-11-09] MEDS: TRAVOPROST Z 0.004% 2.5 ML OPHT.BTL EACHEYE SCH (19:56)
[2016-11-10] MEDS: ACETAMINOPHEN 325 MG TAB PO PRN ×2 (04:00→20:59)
[2016-11-10 04:47] LABS: % IMMATURE GRANULYOCYTES 0.6 % (0.0-1.1); ABSOLUTE IMMATURE GRANULOCYTES 0.04 10^3/uL (0.00-0.10); ADD DIFF? NO; ADD MORPH? NO; ADD SCAN? NO; ATYPICAL LYMPHOCYTE FLAG 0 (0-99); FRAGMENT RBC FLAG 0 (0-99); HEMATOCRIT 27.8 % (38.0-47.0); HEMOGLOBIN 8.9 g/dL (12.6-16.3); LEFT SHIFT FLG 0 (0-99); LIPEMIA HEMOLYSIS FLAG 80 (0-99); MEAN CELL HEMOGLOBIN 31.8 pg (27.9-34.1); MEAN CELL VOLUME 99.3 fL (81.5-99.8); MEAN PLATELET VOLUME 9.8 fL (8.7-11.7); PLATELET CLUMPS FLAG 20 (0-99); PLATELET COUNT 150 10^3/uL (150-400); RED CELL DISTRIBUTION WIDTH 13.7 % (11.5-15.2)
[2016-11-10 04:59] LABS: ANION GAP 7 mEq/L (8-16); CALCIUM 8.3 mg/dL (8.5-10.4); CARBON DIOXIDE 26 mEq/l (22-31); CHLORIDE 108 mEq/L (97-110); CREATININE 1.6 mg/dL (0.6-1.0); GLOMERULAR FILTRATION RATE 30; GLUCOSE 108 mg/dL (70-100); POTASSIUM 4.2 mEq/L (3.5-5.2); SODIUM 141 mEq/L (134-144)
--- NOTE | 2016-11-10 09:02 | SOAPPROG ---
SOAP Progress Note Assessment/Plan: Assessment/Plan: s/p closed reduction internal fixation left femoral neck fracture POD#2 - TDWB LLE - Continue PT/OT - Continue pain management - Continue SCDs/TEDs and heparin for mechanical/chemoprophylaxis - Dressing change today - Okay for discharge from an orthopedic standpoint 11/10/16 09:00 11/10/16 09:02 Subjective: s/p CRIF L femoral neck fracture POD#2 Pt states she has some pain in her L hip area; she had a difficult time getting comfortable last night Objective: Vital Signs Temp Pulse Resp BP Pulse Ox 37.1 C 73 16 131/49 H 98 11/10/16 07:34 11/10/16 07:34 11/10/16 07:34 11/10/16 07:34 11/10/16 07:34 Microbiology 11/07/16 20:58 Urine Culture - Final Urine,Clean Catch Escherichia Coli Laboratory Results 11/10/16 04:23 11/10/16 04:34 11/09/16 11/10/16 11/11/16 05:59 05:59 05:59 Intake Total 1375 850 Output Total 1325 300 Balance 50 550 PT 13.4 SEC (12.0-15.0) 11/07/16 19:10 INR 1.03 (0.83-1.16) 11/07/16 19:10 Physical Exam - Physical Exam General Appearance: alert, no apparent distress Skin: normal color, warm/dry, other (Incision site c/d/i with no surrounding erythema) Extremities: normal capillary refill, No pedal edema, No calf tenderness, No swelling, No Jairo's sign Neuro/Psych: no motor/sensory deficits, alert, normal mood/affect ICD10 Worksheet Patient Problems: Problems Problem Status Diagnosed Fracture of femoral neck, left, closed Acute
[2016-11-10] MEDS: PIOGLITAZONE HCL 15 MG TAB PO SCH (09:18)
[2016-11-10] MEDS: METOPROLOL TARTRATE 25 MG TAB PO SCH ×2 (09:20→18:09)
[2016-11-10] MEDS: FUROSEMIDE 20 MG TAB PO SCH (09:20)
[2016-11-10] MEDS: hydrALAZINE 25 MG TAB PO SCH ×2 (09:21→15:22)
[2016-11-10] MEDS: FELODIPINE 5 MG TAB.ER PO SCH (09:21)
[2016-11-10] MEDS: DOCUSATE SODIUM 100 MG CAP PO SCH ×2 (09:22→21:00)
[2016-11-10] MEDS: HEPARIN 5,000 UNIT/0.5 ML SYR SC SCH ×2 (09:24→20:57)
[2016-11-10] MEDS: CYCLOSPORINE 0.05% 1 EACH BOX EACHEYE SCH ×2 (09:25→20:58)
[2016-11-10] MEDS: DORZOLAMIDE 2% OPTH DROPS OP SCH ×3 (09:25→21:01)
[2016-11-10] MEDS: VIT D PO SCH (11:46)
[2016-11-10] MEDS: PROBIOTIC PO SCH (11:46)
[2016-11-10] MEDS: CALCIUM PO SCH (11:46)
[2016-11-10] MEDS ORDERED: PNEUMOC 13-VAL CONJ-DIP CRM/PF 0.5 ML SYR IM ONE (16:26)
--- NOTE | 2016-11-10 16:46 | HOSPPROG ---
Hospitalist Progress Note Assessment/Plan: 85-y/o F PMH T2DM, chronic respiratory failure, T2DM, htn, DCHF, CKD, admitted after a mechanical 11/07/16. Fell out of seated walker and landed on L hip with resultant femoral neck fx. This is my 1st encounter with the patient, chart reviewed. #. L femoral neck fx: s/p L ORIF POD 2 Reports no hip pain currently #. CKD: appears to be at b/l reviewed with daughter that patient is on both ARB and ACEi, which may be contributing to her renal dysfunction #. htn: BP goals reviewed/ for her age would allow higher pressures stop Benicar and Lisinopril and monitor #. DCHF: appears euvolemic #. chronic hypoxic respiratory failure: typically not on O2 #. E coli UTI: recently had 2 rounds of ciprofloxacin for this currently on CTX to which UTI is sensitive UTI resistant to fluoroquinolones Will continue Rocephin for 1 more day #. T2DM: home Pioglitazone continued #. DVT ppx: started on Heparin # disposition Plan for discharge to rehab in the a.m. Daughter making decision today Subjective: Patient has no specific complaints at this time denies any pain currently denies any urinary issues currently per the daughter at the bedside since patient always denies any issues. Objective: Vital Signs Temp Pulse Resp BP Pulse Ox 36.4 C 67 15 153/51 H 96 11/10/16 15:18 11/10/16 15:18 11/10/16 15:18 11/10/16 15:22 11/10/16 15:18 Laboratory Results 11/10/16 04:23 11/10/16 04:34 11/09/16 11/10/16 11/11/16 05:59 05:59 05:59 Intake Total 1375 850 Output Total 1325 300 650 Balance 50 550 -650 PT 13.4 SEC (12.0-15.0) 11/07/16 19:10 INR 1.03 (0.83-1.16) 11/07/16 19:10 - Physical Exam Constitutional: no apparent distress, appears nourished, not in pain Eyes: PERRL, anicteric sclera, EOMI Ears, Nose, Mouth, Throat: moist mucous membranes, hearing normal, ears appear normal Cardiovascular: regular rate and rhythym, No JVD, No edema Respiratory: no respiratory distress, no rales or rhonchi, reduced air movement Gastrointestinal: normoactive bowel sounds, No tenderness, No ascites Skin: warm, normal color, No erythema Musculoskeletal: pain with ROM, generalized weakness, No normal joint ROM Psychiatric: interacting appropriately, not anxious, poor insight, poor judgement, poor memory ICD10 Worksheet Patient Problems: Problems Problem Status Diagnosed Fracture of femoral neck, left, closed Acute
[2016-11-10] MEDS: ESCITALOPRAM OXALATE 10 MG TAB PO SCH (18:09)
[2016-11-10] MEDS: TRAVOPROST Z 0.004% 2.5 ML OPHT.BTL EACHEYE SCH (21:00)
[2016-11-10] MEDS: POVIDONE EACHEYE PRN (21:06)
[2016-11-10] MEDS: POLYVINYL ALCOHOL EACHEYE PRN (21:06)
[2016-11-11] MEDS: PIOGLITAZONE HCL 15 MG TAB PO SCH (05:59)
[2016-11-11] MEDS: FELODIPINE 5 MG TAB.ER PO SCH (06:00)
[2016-11-11] MEDS: FUROSEMIDE 20 MG TAB PO SCH (06:00)
[2016-11-11] MEDS: METOPROLOL TARTRATE 25 MG TAB PO SCH ×2 (06:00→16:09)
--- NOTE | 2016-11-11 06:52 | SOAPPROG ---
SOAP Progress Note Assessment/Plan: Assessment/Plan: Left femoral neck fx: s/p L CRPF POD#3 - Cont TDWB LLE - Cont PT/OT - Continue current PO pain management as tolerated - Cont SCDs/TEDs for VTE mechanical prophylaxis - Cont heparin for VTE chemoprophylaxis - Ok for d/c to rehab from an ortho standpoint Subjective: Pt seen at bedside today, awoken for exam. Daughter is not present in room for exam. No complaints of significant pain in hip today. Has not yet been OOB or with PT/OT today, but states she was able to get up and move around yesterday which she reports went well. She denies any new onset bro, dizziness, sob, cp, increased WOB, n/t or posterior calf pain bilaterally. She states she believes she is ready to be discharged to a rehab facility when cleared, but would like to be discharged to home if able. After a discussion about her safety, she appears amenable to the rehab plan. She has no additional concerns or complaints at this time. Reports from nursing overnight report no significant issues with pain, and pt appears to be tolerating medications well. Per report, pt has not taken any PO analgesics other than Tylenol for the past 48 hrs. No additional concerns or complaints at this time, AMANDA Power states likely d/c to [facility] today. Objective: Vital Signs Temp Pulse Resp BP Pulse Ox 37.1 C 76 20 170/65 H 98 11/10/16 23:20 11/11/16 06:00 11/10/16 23:20 11/11/16 06:00 11/10/16 23:20 Laboratory Results 11/10/16 04:23 11/10/16 04:34 11/10/16 11/11/16 11/12/16 05:59 05:59 05:59 Intake Total 850 440 Output Total 300 980 Balance 550 -540 PT 13.4 SEC (12.0-15.0) 11/07/16 19:10 INR 1.03 (0.83-1.16) 11/07/16 19:10 Pt seen at bedside today, awoken for exam. Pt slightly slow to answer questions , daughter not present. VSS. Dressing intact, clean and dry, intact j carlos w/ o significant erythema, discharge, calor or induration. Pt moves leg well on command. Posterior calves NTTP bilaterally, no palpable vascular cords, negative Jairo's bilaterally. DNVI BLE. ICD10 Worksheet Patient Problems: Problems Problem Status Diagnosed Fracture of femoral neck, left, closed Acute
[2016-11-11] MEDS: DOCUSATE SODIUM 100 MG CAP PO SCH (09:19)
[2016-11-11] MEDS: hydrALAZINE 25 MG TAB PO SCH ×2 (09:20→14:33)
[2016-11-11] MEDS: DORZOLAMIDE 2% OPTH DROPS OP SCH ×2 (09:20→16:09)
[2016-11-11] MEDS: CYCLOSPORINE 0.05% 1 EACH BOX EACHEYE SCH (09:20)
[2016-11-11] MEDS: HEPARIN 5,000 UNIT/0.5 ML SYR SC SCH (09:21)
[2016-11-11] MEDS: ACETAMINOPHEN 325 MG TAB PO PRN ×2 (09:27→16:07)
--- NOTE | 2016-11-11 11:39 | PDIAF ---
- Diagnosis Diagnosis: left femoral neck fx Code Status: Full Code - Medication Management Discharge Medications: Medications to Continue on Transfer Acetaminophen [Tylenol ES 500 mg (*)] 500 mg PO BID PRN 11/07/16 [Last Taken Unknown] Dorzolamide 2% [Trusopt 2% (*)] 1 drops OP BID 11/07/16 [Last Taken 11/07/16 08: 00] Escitalopram Oxalate [Lexapro] 20 mg PO DAILY@11/07/16 [Last Taken 11/06/16] Felodipine [Plendil 5 MG (*)] 10 mg PO DAILY@11/07/16 [Last Taken 11/07/16] Furosemide [Lasix 20 MG (*)] 20 mg PO DAILY@11/07/16 [Last Taken 11/07/16] Herbals/Supplements -Info Only 1 ea PO DAILY 11/07/16 [Last Taken 11/07/16] Metoprolol Tartrate [Lopressor 25 mg (*)] 25 mg PO BID@11/07/16 [Last Taken 11/07/16 07:00] Pioglitazone HCl [Actos 15mg (*)] 15 mg PO DAILY@11/07/16 [Last Taken ] Polyvinyl Alcohol/Povidone/Pf [Refresh Classic Eye Drops] 1 drop EACHEYE TID PRN 11/07/16 [Last Taken 11/07/16] Travoprost Z 0.004% [Travatan Z 0.004% (*)] 1 drops EACHEYE HS 11/07/16 [Last Taken 11/06/16] cycloSPORINE 0.05% [Restasis Opht Drops(*)] 1 drop EACHEYE BID 11/07/16 [Last Taken 11/07/16 08:00] hydrALAZINE [Apresoline] 25 mg PO BID@,11/07/16 [Last Taken 11/07/16 14:00] Bisacodyl [Bisacodyl (*)] 5 mg PO PRN PRN #0 tab 11/11/16 [Last Taken Unknown] Docusate Sodium [Colace 100 MG (*)] 100 mg PO BID #0 cap 11/11/16 [Last Taken Unknown] Heparin [Heparin SC 5000 unit/0.5 ml (*)] 5,000 unit SC BID #0 syr 11/11/16 [ Last Taken Unknown] Hydrocodone/APAP 5/325 [[place] 5/325 (*)] 1 tab PO Q4HRS PRN #0 tab 11/11/16 [ Last Taken Unknown] oxyCODONE IR [Oxycodone Ir (*)] 5 mg PO Q4HRS PRN #0 tab 11/11/16 [Last Taken Unknown] Discharge Medications: Refer to the Discharge Home Medication list for PRN reason. PICC Care - Routine: N/A - Orders Services needed: Registered Nurse, Physical Therapy, Occupational Therapy - Follow Up Care Current Providers and Referrals: STEPHANIE SORIANO [Primary Care Provider] - As per Instructions Cory Nicole MD [Medical Doctor] - (Pt is to follow up in clinic 10-14 days post operatively w/ Dr. Nicole in clinic. The pt is encouraged to contact the office as soon as possible to schedule this appointment, or with any additional questions or concerns.)
[2016-11-11] MEDS: PROBIOTIC PO SCH (12:58)
[2016-11-11] MEDS: CALCIUM PO SCH (13:00)
[2016-11-11] MEDS: VIT D PO SCH (13:00)
[2016-11-11 15:57] VITALS: BP 159/63; PULSE 73; RESP 14; TEMP 99.1; O2SAT 98
[2016-11-11] MEDS: ESCITALOPRAM OXALATE 10 MG TAB PO SCH (16:08)
[2016-11-11] MEDS: POVIDONE EACHEYE PRN (16:09)
[2016-11-11] MEDS: POLYVINYL ALCOHOL EACHEYE PRN (16:09)
--- NOTE | 2016-11-12 02:45 | GDS ---
[f rep st] DISCHARGE SUMMARY DISCHARGE DIAGNOSES: 1. Left femoral neck fracture. 2. Escherichia coli urinary tract infection, fluoroquinolone resistant. 3. Chronic kidney disease. 4. Hypertension. 5. History of diastolic congestive heart failure. 6. Chronic hypoxemic respiratory failure. 7. Diabetes mellitus type 2. CONSULTATIONS: Dr. Nicole of Orthopedics. PHYSICAL EXAM: GENERAL: The patient is alert. VITAL SIGNS: Afebrile 37.3, pulse is 73, respirator y rate is 14, blood pressure is 159/63, she is saturating 98% on 1 L. I have seen and evaluated the patient on the day of discharge. HOSPITAL COURSE: Patient is an 85-year-old female, who suffered a mechanical fall and presented to [facility] emergency room with complaints of hip pain. She was evaluated and diagnosed with. 1. Left femoral neck fracture. During this hospitalization, she received a consultation from Dr. Wilbur wagoner of Orthopedics. Surgical intervention was performed and she is in the postop day 3 setting. Her pain is well controlled and she is stable to continue rehabilitation. 2. Chronic kidney disease. She is at baseline with regard to this condition. Her laboratory evalua tions can be followed in the outpatient setting. 3. Hypertension. The patient's Benicar as well as lisinopril had been discontinued during this hosp ital course per the patient's daughters' wishes. They wish for the patient to have a more elevated b lood pressure then was previous as they feel that the blood pressure medications were making the irma ent dizzy. 4. History of diastolic congestive heart failure. There is no acute process at this time. 5. Chronic hypoxemic respiratory failure. Patient is at her baseline. 6. E. coli urinary tract infection. During this hospitalization, microbiology demonstrated that the E. coli was fluoroquinolone resistant. She has been treated with Rocephin during this hospitalizati on and presumed treated at this time. 7. Disposition. Follow up will be with her primary care physician, if needed. 8. Diabetes mellitus type 2. We continued her home medications. DISPOSITION: Patient will be discharged to [facility] for further strengthening, condi tioning regarding her recent hip fracture. There are no pending studies. Followup will be with her primary care physician, Dr. Mak Menjivar as well as orthopedic Dr. Redmond. I spent greater than 35 minutes in the care, coordination, and management of the patient's disposition. DISCHARGE MEDICATIONS: Please refer to EMR form. I have discontinued the patient's previously presc ribed Benicar as well as lisinopril. /[id number]/MODL
== END 2016-11-11 17:04 | DRG 481 ==
LOC: F3N 22:02
PROVIDERS: ADMIT Internal Medicine; ATTEND Internal Medicine
PROC: 0QS704Z Reposition Left Upper Femur with Internal Fixation Device, Open Approach (ICD-10-PCS; principal; 2016-11-08 10:32)
DX: S72.002A Fracture of unspecified part of neck of left femur, initial encounter for closed fracture (principal); N39.0 Urinary tract infection, site not specified; I50.32 Chronic diastolic (congestive) heart failure; J96.11 Chronic respiratory failure with hypoxia; J84.9 Interstitial pulmonary disease, unspecified; B96.20 Unspecified Escherichia coli [E. coli] as the cause of diseases classified elsewhere; N18.9 Chronic kidney disease, unspecified; I12.9 Hypertensive chronic kidney disease with stage 1 through stage 4 chronic kidney disease, or unspecified chronic kidney disease; E11.9 Type 2 diabetes mellitus without complications; M81.0 Age-related osteoporosis without current pathological fracture; W18.39XA Other fall on same level, initial encounter; Y93.89 Activity, other specified; Z86.718 Personal history of other venous thrombosis and embolism; Z16.23 Resistance to quinolones and fluoroquinolones; Z87.891 Personal history of nicotine dependence; Z23 Encounter for immunization
CPT/HCPCS: 96374; 97161-GP; 97165-GO; 97530-GO; 97530-GP; 97535-GO; C1713; C1769; G0009; G8978-GP-CL; G8979-GP-CJ; G8987-GO-CM; G8988-GO-CJ; J0690; J0696; J1100; J2370; J2405; J2704; J3010